=== PATIENT | female | born 1965 | race Caucasian/White ===

== ENCOUNTER → 2021-02-25 10:39 | Outpatient (CLI) | payer BC, SELFPAY ==
--- NOTE | ~2021-02-25 | DEXA_ITS ---
Bone Density Report Name: Peyton Díaz Age: 55 Sex: Female Ethnicity: White Date of : 1965 Indication: postmenopausal; screening for osteoporosis; height loss; Referring Provider: Andrey, Radha Study: Bone densitometry was performed. Exam Date: February 25, 2021 Accession number: [id number] Bone Density: Region BMD T-score Z-score Classification AP Spine (L1-L4) 0.916 -1.2 0.1 Osteopenia Femoral Neck (Left) 0.745 -0.9 0.2 Normal Total Hip (Left) 0.862 -0.7 0.2 Normal Femoral Neck (Right) 0.733 -1.0 0.1 Normal Total Hip (Right) 0.820 -1.0 -0.2 Normal Total Hip Mean 0.841 -0.9 0.0 Normal World Health Organization criteria for BMD impression classify patients as: Normal (T-score at or above -1.0), Osteopenia (T-score between -1.0 and -2.5), or Osteoporosis (T-score at or below -2.5). 10-year Fracture Risk(1): Major Osteoporotic Fracture 7.1% Hip Fracture 0.4% Reported Risk Factors: [place] (), Neck BMD=0.733, BMI=35.5, alcohol use (1) FRAX(R) Version 3.08. Fracture probability calculated for an untreated patient. Fracture probability may be lower if the patient has received treatment. Previous Exams: Region Exam Age BMD T-score BMD Change BMD Change Date g/cm2 vs Baseline vs Previous AP Spine(L1-L4) 02/25/2021 55 0.916 -1.2 -0.167* -0.167* 04/21/2015 49 1.083 0.3 Total Hip(Left) 02/25/2021 55 0.862 -0.7 -0.147* -0.147* 04/21/2015 49 1.010 0.6 Total Hip(Right) 02/25/2021 55 0.820 -1.0 -0.151* -0.151* 04/21/2015 49 0.971 0.2 *Denotes significance at 95% confidence level, LSC for AP Spine = 0.022 g/cm2, LSC for Total Hip = 0.027 g/cm2 Clinical Information Provided by Patient: Has 3 or more alcoholic drinks per day Patient maximum height was 66 Menopause Age: 48 No regular weight bearing exercise Does not regularly consume dairy products Drinks caffeinated beverages Onset of menses at age 10 Number of children 3 Impression: The patient has low bone mass, based on the Total Spine T-score. The patient has an estimated ten-year risk of hip fracture of 0.4% and an estimated ten-year risk of major fracture of 7.1%, based on the WHO FRAX algorithm. The patient has risk factors, including: excessive alcohol use. The BMD for the AP Spine(L1-L4) decreased, changing by -0.167 since the last DXA exam. The BMD for the Total Hip(Left) decreased,
== END ==
PROVIDERS: PCP Family Medicine; Visit Provider Nurse Practitioner
DX: Z13.820 Encounter for screening for osteoporosis (principal); M85.88 Other specified disorders of bone density and structure, other site
CPT/HCPCS: 77080

== ENCOUNTER → 2021-02-25 10:42 | Outpatient (CLI) | payer BC, SELFPAY ==
--- NOTE | ~2021-02-25 | XR_ITS ---
XR shoulder RT min 2V 02/25/2021 11:38 Indication: Rotator cuff tendinitis Procedure: 4 views right shoulder Comparison: 12/05/2004 Findings: No fracture, subluxation or dislocation. No significant soft tissue abnormality. No radiopa que foreign bodies. Mild osteoarthritis of the acromioclavicular joint. Impression: 1: Mild osteoarthritis of the right acromioclavicular joint. Reviewed, dictated and finalized at location B. Impression: 1: Mild osteoarthritis of the right acromioclavicular joint.
== END ==
PROVIDERS: PCP Family Medicine; Visit Provider Family Medicine
DX: M75.81 Other shoulder lesions, right shoulder (principal); M19.011 Primary osteoarthritis, right shoulder
CPT/HCPCS: 73030

== ENCOUNTER → 2022-08-28 14:41 | Outpatient (CLI) | payer BC, SELFPAY ==
--- NOTE | ~2022-08-28 | XR_ITS ---
EXAMINATION: XR lumbar spine 2-3V DATE: 08/28/2022 14:54 INDICATION: Low back pain. Right-sided sciatica. TECHNIQUE: 3 views of lumbar spine were obtained. COMPARISON: Lumbar spine radiographs 01/24/2019, CT abdomen and pelvis 08/06/2017 FINDINGS: There is 3 degrees dextrocurvature of lumbar spine. Vertebral body heights are normal. Ther e is moderately decreased disc height at L2-L3, mildly decreased disc height at L3-L4, and moderately decreased disc height at L4-L5. The facet joints are unremarkable. IMPRESSION: 1. Moderate lumbar spondylosis. Reviewed, dictated and finalized at location B.
== END ==
PROVIDERS: PCP Emergency Medicine; Visit Provider Emergency Medicine
DX: M47.896 Other spondylosis, lumbar region (principal)
CPT/HCPCS: 72100

== ENCOUNTER → 2022-09-27 14:55 | Outpatient (CLI) | payer BC, SELFPAY ==
--- NOTE | ~2022-09-27 | MR_ITS ---
EXAMINATION: MR lumbar spine wo con DATE: 09/27/2022 15:37 INDICATION: Back Pain . TECHNIQUE: Magnetic resonance imaging (MRI) of the lumbar spine was performed without intravenous con trast. Sequences included sagittal T2-weighted FSE, sagittal T2-weighted FS FSE, sagittal T1-weighted FSE, and axial T2-weighted FSE. COMPARISON: X-ray L-spine 08/28/2022. FINDINGS: The last fully formed and hydrated disc is designated L5-S1. The marrow signal is benign an d homogenous. Conus terminates at L1. Multilevel disc space narrowing and dehydration. Mild clumping of inferior nerve roots The following disc levels are specifically discussed: T11-T12: The disc does not extend beyond the endplate margin. There is no facet joint osteoarthritis. There is no neural foraminal stenosis. There is no central canal stenosis. T12-L1: Minimal diffuse bulge. There is no facet joint osteoarthritis. There is no neural foraminal s tenosis. There is no central canal stenosis. L1-L2: The disc does not extend beyond the endplate margin. There is mild facet joint osteoarthritis. There is no neural foraminal stenosis. There is no central canal stenosis. L2-L3: Moderate diffuse bulge with a right lateral component. There is moderate facet joint osteoarth ritis. There is mild bilateral neural foraminal stenosis. There is no central canal stenosis. L3-L4: Moderate diffuse bulge. There is moderate facet joint osteoarthritis. There is mild bilateral neural foraminal stenosis, worse on the right. There is no central canal stenosis. L4-L5: Moderate diffuse bulge, 3 mm right foraminal protrusion. There is moderate facet joint osteoar thritis. There is moderate right and mild left neural foraminal stenosis. There is no central canal s tenosis. L5-S1: Moderate diffuse bulge, 4 mm central protrusion. Focal transverse disc rent. There is mild fac et joint osteoarthritis. There is mild bilateral neural foraminal stenosis. There is no central canal stenosis. IMPRESSION: 1. Moderate degenerative disc disease at L4-5 with a 3 mm right foraminal protrusion that contributes to moderate right neural foraminal narrowing. 2. Moderate degenerative disc disease at L4-5 with a 4 mm central protrusion and a transverse disc re nt. 3. Mild lumbar arachnoiditis. 4. Moderate disc disc disease and facet arthropathy at multiple levels, detailed above Reviewed, dictated and finalized at location K. IMPRESSION: 1. Moderate degenerative disc disease at L4-5 with a 3 mm right foraminal protr usion that contributes to moderate right neural foraminal narrowing. 2. Moderate degenerative disc disease at L4-5 with a 4 mm central protrusion an d a transverse disc rent. 3. Mild lumbar arachnoiditis. 4. Moderate disc disc disease and facet arthropathy at multiple levels, dexter levine above
== END ==
PROVIDERS: PCP Emergency Medicine; Visit Provider Emergency Medicine
DX: M79.18 Myalgia, other site (principal); M51.36 Other intervertebral disc degeneration, lumbar region
CPT/HCPCS: 72148